=== PATIENT | female | born 1950 | race Caucasian/White ===

== ENCOUNTER → 2020-06-25 10:07 | Outpatient (CLI) | payer MEDICARE, SELFPAY ==
[2020-06-25 11:09] LABS: COVID19 -Nasal RAPID Negative (Negative)
== END ==
PROVIDERS: Visit Provider Physician Assistant
DX: Z01.812 Encounter for preprocedural laboratory examination (principal); Z20.822 Contact with and (suspected) exposure to COVID-19
CPT/HCPCS: 87635; C9803

== ENCOUNTER 2020-06-26 08:38 | Day surgery (SDC) | payer MEDICARE, SELFPAY ==
[2020-06-26] VITALS (17 sets, daily range): BP systolic 103–137; BP diastolic 50–81; PULSE 51–76; RESP 9–19; TEMP 35.8–36.6; O2SAT 96–100; BMI 21.1
--- NOTE | 2020-06-26 | DI.RAD.S_ITS ---
PROCEDURE: XR PELVIS 1-2V INDICATIONS: TOTAL LEFT HIP, SCREW REMOVAL TECHNIQUE: Intra-operative view of the pelvis and hip acquired. COMPARISON: [facility], , XR HIP 2 VIEWS LEFT, 04/12/2020, 11:43. FINDINGS: Bones: Intraoperative devices prior to placement of arthroplasty prostheses are in expected positions. No fractures or suspicious bony lesions. Soft tissues: Overlying surgical retractors are present, along with other intraoperative changes. IMPRESSION: Intraoperative study of pelvis shows left hip arthroplasty in progress. Dictated by: Dax Chase M.D. on 06/26/2020 at 13:21 Approved by: Dax Chase M.D. on 06/26/2020 at 13:21
--- NOTE | 2020-06-26 07:43 | DI.RAD.S_ITS ---
PROCEDURE: XR HIP W PEL IF DONE LT 2V INDICATIONS: total left hip TECHNIQUE: AP pelvis and lateral view of the left hip acquired. COMPARISON: None. FINDINGS: Bones: Patient is status post left hip arthroplasty, with hardware components in expected positions. The hip joint appears congruent. The visualized bony structures appear intact. Moderate right hip joint degeneration and lower lumbar spondylosis and facet arthropathy. Soft tissues: Overlying postoperative changes are noted. No suspicious soft tissue densities. IMPRESSION: Expected postoperative appearance. Dictated by: Sarthak Murphy M.D. on 06/26/2020 at 15:51 Approved by: Sarthak Murphy M.D. on 06/26/2020 at 15:52
[2020-06-26] MEDS: ACETAMINOPHEN 325 MG TABLET 975 MG PO (09:59)
[2020-06-26] MEDS: PREGABALIN 75 MG CAPSULE PO (09:59)
[2020-06-26] MEDS: CELECOXIB 200 MG CAPSULE PO (10:00)
[2020-06-26] MEDS: LACTATED RINGERS 1,000 ML 42 ML IV ×2 (10:11→13:18)
[2020-06-26] MEDS: VANCOMYCIN 1,000 MG/200 ML PIGGYBACK 200 MG IV (11:20)
--- NOTE | 2020-06-26 11:31 | P.OP_ITS ---
Operative Date/Time/Diagnoses Date of procedure: 06/26/20 Time of procedure: 11:57 Pre-op diagnosis: History of left hip open reduction internal fixation for femoral neck fracture with posttraumatic left hip arthritis Post-op diagnosis: same Procedure & Clinicians Procedure: conversion of previous hip surgery to left total hip arthroplasty Same procedure as scheduled: Yes Indications: The patient has had progressively worsening left hip pain with radiographic changes consistent with arthritis. Non-operative management has failed and the patient has requested total hip replacement. She has retained internal fixation with previous left hip open reduction internal fixation. The risks, benefits and alternatives to surgery were discussed with the patient prior to proceeding. Risks discussed included, but were not limited to, failure to relieve pain, leg length discrepancy, dislocation, stiffness, infection, nerve damage, deep venous thrombosis, pulmonary embolism, stroke, coma, heart attack, permanent paralysis and , as well as the potential need for eventual revision of the prosthetic. Surgeon: Dayna Melchor [employer] Farmworker: Bj Greenberg Anesthesia Type: General and Spinal Operative Notes Findings: severe left hip arthritis, good stability Closure Type: primary Specimen(s): none sent Prosthetic devices, grafts, tissues, transplants, or devices: Melchor and Nephew 56 R3 cup, size 13 synergy standard offset, +0 femoral head Applied: drain(s) Estimated Blood Loss (mL): 250 Blood products transfused: none Procedure in detail: The patient was seen in the pre-operative area, where the patient identified the left hip as the operative site and this was marked with my initials. The patient received pre-operative antibiotics and was taken to the operating room and placed on the operative table in the right lateral decubitus position after satisfactory anesthesia. A client server developer out was performed. The left leg was prepared from the ankle to the iliac crest with ChloroPrep in the usual fashion and draped through sterile drapes. The hip was approached through an approximately 24 cm incision centered over the greater trochanter and curving gently posteriorly as it went proximally. This was carried sharply to the fascia román, which was divided and retracted with a self retaining retractor. The trochanteric bursa was excised with care being taken to avoid the sciatic nerve, which was identified and protected throughout the case. The short external rotators were incised and the capsulomuscular flap was raised and tagged for later repair. The hip was dislocated. It was then re-reduced and the 3 previously placed screws were removed. there was some bony over to grow for with that had to be removed over the screw heads. It was then redislocated and a femoral neck osteotomy performed approximately 15 mm above the lesser trochanter. Retractors were placed around the femur. The canal was opened with a box cutting osteotome, followed by a T handled reamer and a lateralizing reamer. The chili pepper broach was then used, followed by sequential broaching until there was good stability of the broach in the femur. Retractors were placed to expose the acetabulum. The labrum and central soft tissues were removed. Reaming was performed initially going up in 2 mm increments, then 1 mm increments until good bite was obtained with an odd sized reamer. The cup 1 mm larger than the last reamer was then inserted using the appropriate anteversion guides. A trial neutral liner was placed. The broach was placed in the canal. A trial head and neck were then placed and the hip relocated and checked for leg length and stability. An intraoperative film confirmed the component position and no evidence of fracture. The patient was stable in the position of sleep, of squatting, and could be put through a range of motion with 45 degrees internal rotation without dislocation. At 90 degrees flexion, internal rotation to 80 Degrees was possible before dislocation. This was felt to be satisfactory and the appropriate components were opened, and the trials were removed. The acetabular liner was impacted into position. The final stem was then impacted into the prepared femoral canal. A brief Betadine soak was performed while trialing with head options. The hip was meticulously irrigated with normal saline. Finally the femoral head was impacted onto the stem. The acetabulum was cleared of all material and the hip relocated one final time. The capsulomuscular flap was then repaired to the greater trochanter though an awl hole using the tag sutures. The short external rotators were repaired with a nonabsorbable suture. A deep drain was placed and brought out anteriorly. The fascia román was closed with Vicryl. The subcutaneous layer was closed with barbed sutures and SteriStrips. An Aquacel Ag dressing was applied and the patient was taken to recovery having tolerated the procedure well. Complications: none Post-operative Condition: stable Disposition: Acute Care Plan for aftercare: The patient will be maintained on a standard total hip replacement protocol with weight bearing as tolerated and posterior hip precautions. The patient will receive Aspirin and sequential compression devices for DVT prophylaxis. The patient will be discharged home when safe for the home environment.
--- NOTE | 2020-06-26 11:31 | PM.PREOP ---
Pre-operative Note COVID-19 COVID-19 status: Negative Interval Note History & Physical reviewed/Exam performed by Physician: Yes Changes to H&P: No
[2020-06-26] MEDS: CEFAZOLIN 2 GM/100 ML FROZ.PIGGY IV ×2 (12:15→20:37)
[2020-06-26] MEDS: TRANEXAMIC ACID 1,000 MG VIAL 1000 MG INJ ×2 (12:28→14:11)
--- NOTE | 2020-06-26 12:41 | SUR.OPER ---
Right Lateral on padded OR bed. Gel axillary roll. Arms secured on padded armboard with pillow supporting top arm. Padded hip positioner braces x4 - anterior and posterior chest and pelvis. Additional gel pad used anterior pelvis. Gel pad under bottom leg from knee to foot and secured with tape over sheet.
[2020-06-26] MEDS: BUPIVACAINE 0.25% W/ EPI 30 ML VIAL 60 ML INJ (12:46)
[2020-06-26] MEDS: SODIUM CHLORIDE IRRIG SOLUTION 250 ML, POVIDONE-IODINE SPONGE STICKS 1 APPLIC IRR (12:55)
[2020-06-26] MEDS: BUPIVACAINE LIPOSOME 266 MG/20 ML VIAL INJ (14:13)
[2020-06-26] MEDS: fentaNYL 100 MCG/2 ML INJ IV ×2 (14:57→15:03)
[2020-06-26] MEDS: IBUPROFEN 400 MG TABLET PO ×2 (16:27→20:38)
[2020-06-26] MEDS: ACETAMINOPHEN 325 MG TABLET 650 MG PO ×2 (16:27→20:38)
[2020-06-26] MEDS: OXYCODONE IR 5 MG TABLET PO ×2 (16:28→20:58)
[2020-06-26] MEDS: LACTATED RINGERS 1,000 ML 125 ML IV (16:30)
[2020-06-26] MEDS: DOCUSATE 100 MG CAPSULE PO (20:38)
[2020-06-26] MEDS: ASPIRIN EC 81 MG TABLET PO (20:38)
[2020-06-27] MEDS: IBUPROFEN 400 MG TABLET PO ×4 (00:26→13:04)
[2020-06-27] MEDS: LACTATED RINGERS 1,000 ML 125 ML IV (01:00)
[2020-06-27] MEDS: OXYCODONE IR 5 MG TABLET PO ×2 (02:33→09:02)
[2020-06-27] MEDS: CEFAZOLIN 2 GM/100 ML FROZ.PIGGY IV (04:15)
[2020-06-27 04:31] VITALS: BP 109/56; PULSE 60; RESP 14; TEMP 37.1; O2SAT 98
--- NOTE | 2020-06-27 07:04 | P.PN_ITS ---
Subjective Subjective Date Patient Seen: 06/27/20 Time Patient Seen: 07:04 Interval history: Patient's pain is mild. Denies fever chills. No nausea/ vomiting. Patient's daughters are home to assist her. Otherwise without complaints this morning. Exam Vital Signs (past 8 hours): - 06/26/20 23:50 06/27/20 04:31 Temperature 97.9 F 98.7 F Pulse Rate 62 60 Respiratory Rate 18 14 Blood Pressure 116/63 109/56 L Pulse Oximetry 97 98 Oxygen Delivery Method Room Air Oxygen Flow Rate 0 Narrative Exam Narrative: Pleasant female in NAD, resting comfortably in bed. Dressing is CDI. Motor function is intact distal bilat. LE. Sensation is grossly intact to light touch bilat. LE. Drain intact. 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 Hip fracture requiring operative repair Osteoarthritis of both hips Osteoporosis Otalgia Poor historian Primary localized osteoarthrosis of pelvic region Reactive depression RLS (restless legs syndrome) Surgical History History of bilateral mastectomy History of hysterectomy Hx of breast implants, bilateral Social History household members: none Smoking Status: Former smoker alcohol intake: current Assessment & Plan Post-op Postoperative Procedures: Procedures Operation Date: 06/26/20 11:45 Actual Procedures Side Surgeon p Total Hip Arthroplasty w/removal of retained screws Left Dayna Melchor MD Progressing as expected post op day 1. Mobilize with PT. Posterior hip precautions. Likely discharge home today.
[2020-06-27 07:35] VITALS: BP 122/50; PULSE 63; RESP 16; TEMP 36.6; O2SAT 99
[2020-06-27 07:36] LABS: Hematocrit 32.8 % (36-46); Hemoglobin 11.7 g/dL (12.0-16.0)
[2020-06-27] MEDS: SODIUM CHLORIDE 0.9% FLUSH 10 ML IV (09:02)
[2020-06-27] MEDS: ASPIRIN EC 81 MG TABLET PO (09:02)
[2020-06-27] MEDS: DOCUSATE 100 MG CAPSULE PO (09:02)
[2020-06-27] MEDS: ACETAMINOPHEN 325 MG TABLET 650 MG PO (09:02)
--- NOTE | 2020-06-27 09:09 | CM.DANOTE ---
DCP: Case received, EMR reviewed and met with patient. Introduced self and role. Was able to obtain information from patient regarding her baseline mobility status, as well as her current living situation. DCP assessment completed with information currently available. Patient is a 69 year old female who admitted yesterday morning to the care of the orthopedic team. PCP: Dr. Thomason. Payer: confirmed: Medicare. Patient came to the hospital for a surgical procedure. She had left hip arthroplasty. Patient has had history of surgery, indicated, the hardware had gone bad. She has history of osteoarthritis. According to notes, mobility has been a challenge. Met with patient in her room. She is alert and oriented. She resides in [place] alone, but stated that her daughter will be assisting her at home. She indicated that she has a cane/walking stick that she has been jsing at home. She also mentioned that she does drive short distances. She is concerned about pain while working with physical therapy, but also, doesn't want to get groggy from pain medications. P: DCP to continue to follow. Patient's goal is home, but will see how she does with physical therapy. Neena Shah RN/Clerical Proofreader
--- NOTE | 2020-06-27 09:44 | PT.IIE ---
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 Hip fracture requiring operative repair Osteoarthritis of both hips Osteoporosis Otalgia Poor historian Primary localized osteoarthrosis of pelvic region Reactive depression RLS (restless legs syndrome) Physical Therapy Inpatient Evaluation/Re-Eval M1 PT/OT-IP Prior Functional Status Start: 06/27/20 11:46 Freq: NEEDED Status: Active Protocol: Document 06/27/20 09:44 AB (Rec: 06/27/20 12:00 AB [id number]) Medical Review Prior Functional Status Medical History Reviewed Yes Communication able to make needs known but has memory issues and requires cues with all tasks Mobility and Gait pt stated that she is independent with all mobilities and ambulation without AD Social History Household Members none Living Arrangements House Number of Floors (Floors) Two Floors Number of Stairs To Enter/Railing? pt stays on main level of the house has 2 steps without rails to enter the house Home Environment Standard Height Toilet,Walk in Shower Home Equipment Front Wheel Walker,Quad Cane, Shower Seat with Backrest,Grab Bars Near Toilet Additional Social History Comment pt's 2 daughters will stay with pt to assist her M2 PT-IP Current Condition Start: 06/27/20 11:46 Freq: NEEDED Status: Active Protocol: Document 06/27/20 09:44 AB (Rec: 06/27/20 12:00 AB [id number]) Physical Therapy Current Condition Current Condition Evaluation Date 06/27/20 Treatment Diagnosis s/p L LYNDA posterior approach; difficulty in walking Onset Date 06/26/20 Precautions Posterior Hip Precautions No Hip Flexion > 90 degrees,No Hip Internal Rotation,No Hip Adduction Weight Bearing Status Weight Bearing Status Weight Bear as Tolerated Allowed Weight Bearing Amount (enter % LLE WBAT or #) (%) M3 PT-IP Subjective Start: 06/27/20 11:46 Freq: NEEDED Status: Active Protocol: Document 06/27/20 09:44 AB (Rec: 06/27/20 12:00 AB [email or web address]) Subjective Physical Therapy Visit Type Type Initial Evaluation Visit Start Time 09:44 Visit Stop Time 11:10 Total Visit Minutes 86 Number of INFECTION PREVENTION SPECIALIST Visits 0 Physical Therapy Visit Comments Patient Comments agreeable to do PT Therapy Pain Assessment Pain When Pain Assessed At Rest Pain Present Pain Present Pain Reported Location L Hip Intensity 5 Scale Used Numeric (0 - 10) Pain Management Techniques Apply Cold,Distraction, Modification of Treatment,Re- positioning,Timing of Activity with Medications M4 PT-IP Mobility and Gait Start: 06/27/20 11:46 Freq: NEEDED Status: Active Protocol: Document 06/27/20 09:44 AB (Rec: 06/27/20 12:00 [email or web address]) PT-Bed Mobility Assessment Supine to Sit Supine to Sit Standby Assistance Sit to Supine Sit to Supine Minimal Assistance,1 Person Assistance PT-Transfer Assessment Sit to and From Stand Sit to and from Stand Contact Guard Assistance,1 Person Assistance Equipment Transfer Assistive Device Gait Belt,Front Wheeled Walker Orthotic/Prosthetic Devices or Brace: No Transfers Transfer Destination Chair Transfer Technique ambulated using FWW Transfer Ability Level of Assist Contact Guard Assistance,1 Person Assistance,Use of Upper Extremities Comments Mobility Comments pt educated on posterior hip precautions but has decrease memory and unable to recall precautions. requires one on one cues with all tasks. completed supine to sit SBA with cues, sit to stand CGA with cues for hip precautions and ambulated in room using FWW CGA. pt's daughter arrived during PT session. conducted caregiver training. educated pt's daughter on pt' s hip precuations, use of gait belt, how to assist and cue pt. pt demonstrated bed mobility, transfers and ambulation using fWW with daughter assisting and was able to complete safely requiring initial cues from PT but able to complete without PT instructions afterwards. PT educated and demonstrate stair climbing. daughter assisted pt with stairs using quad cane and was able to complete safely. assisted pt back to her room. pt ambulated using fWW to the chair. positioned on the chair. call light and table placed within reach. reviewed precautions, mobility and car transfers with pt and daughter. daughter stated that she feels confident on assisting pt and without further concerns. Gait Assessment Gait Gait Assistance Required: Contact Guard Assist Distance (Feet) 125 Able to Maintain Weight Bearing Status Yes During Gait Assistive Devices Assistive Device Gait Belt,Front Wheeled Walker Orthotic/Prosthetic Devices or Brace: No Gait Deviations General Gait Pattern Antalgic,Decreased Stride Length,Decreased Feet Clearance,Step-to Gait Factors Limiting Gait Function Factors Limiting Gait Function Decreased Activity Tolerance, Decreased Strength,Difficulty Following Directions,Limited Range of Motion,Pain,Poor Balance,Poor Safety Awareness Stair Climbing Assessment Evaluation Level of Assist On Stairs Minimal Assistance Devices Stair Climbing Assistive Devices Small Base Quad Cane Technique/Endurance Stair Climbing Direction Ascend and Descend Stair Climbing Technique Step to Step Number of Steps Climbed 3 Query Text: Stair Climbing Set # Repetitions (reps) 1 PT-Balance Assessment Sitting Balance and Reactions Static Sitting Balance Ability Good Dynamic Sitting Balance Ability Good Standing Balance and Reactions Static Standing Balance Ability Fair Dynamic Standing Balance Ability Fair Device Used FWW M5 PT-IP Objective Assessments Start: 06/27/20 11:46 Freq: NEEDED Status: Active Protocol: Document 06/27/20 09:44 AB (Rec: 06/27/20 12:00 AB [email or web address]) Orientation Orientation/Cognition Level of Alertness Alert Orientation Name,Place,Situation Safety Awareness Decreased Safety Awareness Memory Description Short Term Impaired,Group Home Impaired Gross Range of Motion Lower Extremity ROM Assessment Within Functional Limits Strength Lower Extremity Strength Assessment Left Impaired Hip 3+/5 Knee 4-/5 Coordination Assessment Gross Coordination Gross Coordination WNL Sensation Assessment Sensation Gross Sensation WNL Muscle Tone Muscle Tone WNL Yes M6 PT-IP Treatment Start: 06/27/20 11:46 Freq: NEEDED Status: Active Protocol: Document 06/27/20 09:44 AB (Rec: 06/27/20 12:00 AB [email or web address]) Physical Therapy Treatment Education Education Provided Precautions,Weight Bearing Status,Post-Op Packet,Safety M7 PT-IP Assessment and Plan Start: 06/27/20 11:46 Freq: NEEDED Status: Active Protocol: Document 06/27/20 09:44 AB (Rec: 06/27/20 12:00 AB [email or web address]) PT Summary Assessment and Plan Potential Rehabilitation Potential Good Status of Condition at Evaluation Stable Summary Impairments Pain,ROM,Strength,Balance, Coordination,Sensation,Tone, Cognition,Bed Mobility, Transfers,Gait,Activity Tolerance Assessment Summary caregiver training conducted and daughter is able to assist pt safely. pt may go home when medically stable. pt stated that she is set up with outpt PT. Goals Bed Mobility Goal Independent Transfer Goal Independent,Front Wheeled Walker Gait Goal Independent,Front Wheel Walker Gait Distance 200 Other Goals up/down 2 steps using quad cane SBA Days to Meet Goals 5 Frequency of Treatment Frequency Of Treatment Twice a Day Treatment Plan Physical Therapy Treatment Plan Bed Mobility Training,Transfer Training,Gait Training, Therapeutic Exercise,Balance Retraining,Post Op Education, Discharge Planning,Hot or Cold Pack,Neuromuscular Re-ed, Coordination Retraining,Manual Therapy Recommendations To Nursing Amount of Assist Needed 1 Person Assist Discharge Recommendations PT Discharge Recommendations Home with 15/12 Assist, Outpatient PT Transportation Needs at Discharge Private Vehicle
[2020-06-27 11:18] VITALS: BP 104/62; PULSE 68; RESP 15; TEMP 36.6; O2SAT 99
[2020-06-27 12:21] VITALS: PULSE 66; RESP 16; O2SAT 99
--- NOTE | 2020-06-27 14:13 | P.DS_ITS ---
History of Present Illness History of Present Illness Date Patient Seen: 06/27/20 Time Patient Seen: 14:14 Chief complaint: OPB Narrative: Patient did well with physical therapy. She denies any nausea or vomiting. She will be discharged home today in stable condition. Discharge Providers Provider Discharge Date: 06/27/20 Primary care physician: Marvin Thomason MD Consults: 06/26/20 07:43 Consult to Anesthesiology Routine Comment: Consulting Provider: Anesthesiologist Reason for consultation: Regional block for post operative pain control 06/26/20 15:56 Consult to Discharge Planning Routine Comment: Consult to Physical Therapy Evaluate & Treat Comment: Physician Instructions: post op LYNDA protocol Consult to Respiratory Therapy Evaluate & Treat Comment: Physician Instructions: Evaluate and treat Discharge provider: Bj Greenberg PA-C Summary Hospital Course Discharge Diagnosis: History of left hip open reduction internal fixation for femoral neck fracture with posttraumatic left hip arthritis Hospital Course: Procedure: conversion of previous hip surgery to left total hip arthroplasty Same procedure as scheduled: Yes Indications: The patient has had progressively worsening left hip pain with radiographic changes consistent with arthritis. Non-operative management has failed and the patient has requested total hip replacement. She has retained internal fixation with previous left hip open reduction internal fixation. The risks, benefits and alternatives to surgery were discussed with the patient prior to proceeding. Risks discussed included, but were not limited to, failure to relieve pain, leg length discrepancy, dislocation, stiffness, infection, nerve damage, deep venous thrombosis, pulmonary embolism, stroke, coma, heart attack, permanent paralysis and , as well as the potential need for eventual revision of the prosthetic. Surgeon: Dayna Melchor Concreting Supervisor: Bj Greenberg Anesthesia Type: General and Spinal Operative Notes Findings: severe left hip arthritis, good stability Closure Type: primary Specimen(s): none sent Prosthetic devices, grafts, tissues, transplants, or devices: Melchor and Nephew 56 R3 cup, size 13 synergy standard offset, +0 femoral head Applied: drain(s) Estimated Blood Loss (mL): 250 Blood products transfused: none Patient admitted for the above-mentioned procedure. Patient consented for the same. Patient underwent conversion of previous hip ORIF to left total hip arthroplasty. Patient back in her room recovering well as in stable condition. Status at Discharge Cognitive/behavioral status at discharge: at baseline, oriented Functional status at discharge: uses cane/walker Overall status at discharge: patient is progressing back to baseline Time Spent with Patient Time spent: Less than 30 minutes Exam Vital Signs (past 8 hours): - 06/27/20 07:35 06/27/20 11:18 06/27/20 12:21 Temperature 97.8 F 97.9 F Pulse Rate 63 68 66 Respiratory Rate 16 15 16 Blood Pressure 122/50 L 104/62 Pulse Oximetry 99 99 99 Oxygen Delivery Method Room Air Oxygen Flow Rate 0 Narrative Exam Narrative: See progress note Objective Labs Result Diagrams: 06/27/20 07:19 Labs: Laboratory Results - last 24 hr 06/27/20 07:19 Hgb 11.7 L Hct 32.8 L PFS Medical History Anxiety state Breast cancer, left Cervical sprain Concussion without loss of consciousness 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 Discharge Plan Discharge Plan Patient Disposition: Home Discharge orders & Medications Discharge Orders: Discharge (Order); Ordered 06/27/20 Ordered By: Bj Greenberg Prescriptions: New acetaminophen 325 mg Tablet 650 mg PO TID Qty: 60 RF: 0 polyethylene glycol 3350 17 gram Powder In Packet 17 gm PO DAILY PRN (Reason: Constipation) Qty: 10 RF: 0 aspirin 81 mg Tablet,Delayed Release (Dr/Ec) 81 mg PO BID Qty: 60 RF: 0 ibuprofen 400 mg Tablet 400 mg PO Q4HR Qty: 60 RF: 0 oxycodone 5 mg Tablet 5 mg PO Q3HR PRN (Reason: Pain, Moderate (4-6)) Qty: 40 RF: 0 Follow up/Referrals: Marvin Thomason MD [Primary Care Provider] - Dayna Melchor MD [Physician] - (2 weeks) Diet/Activity/Treatments Diet: Diet as Tolerated Activity: walk multiple times a day. Follow posterior hip precautions. Cold/Heat Therapy: Use ice on hip multiple times a day. Skin/Wound/Dressing Care Report to your healthcare provider any signs of infection, such as:: chills, fever, night sweats, increased pain, unusual drainage and unusual redness Dressing: Leave dressing on. Okay to shower. Visit Report/Discharge Packet Instructions: DI for Hip Replacement Stand Alone Forms: Surgery Discharge Discharge Data Primary Care Provider: Marvin Thomason Attending Provider: Dayna Melchor
--- NOTE | 2020-06-27 14:38 | PT.IPTN ---
Current Diagnoses Pain in left hip (06/26/20) Surgery Performed Operation Date: 06/26/20 11:45 Actual Procedures p Total Hip Arthroplasty w/removal of retained screws(Left) - Dayna Melchor MD Physical Therapy Treatment Note M2 PT-IP Current Condition Start: 06/27/20 11:46 Freq: NEEDED Status: Discharge Protocol: Document 06/27/20 09:44 AB (Rec: 06/27/20 12:00 AB [id number]) Physical Therapy Current Condition Current Condition Evaluation Date 06/27/20 Treatment Diagnosis s/p L LYNDA posterior approach; difficulty in walking Onset Date 06/26/20 Precautions Posterior Hip Precautions No Hip Flexion > 90 degrees,No Hip Internal Rotation,No Hip Adduction Weight Bearing Status Weight Bearing Status Weight Bear as Tolerated Allowed Weight Bearing Amount (enter % LLE WBAT or #) (%) M3 PT-IP Subjective Start: 06/27/20 11:46 Freq: NEEDED Status: Discharge Protocol: Document 06/27/20 14:24 LD (Rec: 06/27/20 15:18 LD [id number]) Subjective Physical Therapy Visit Type Type Treatment Note Visit Start Time 14:24 Visit Stop Time 14:38 Total Visit Minutes 14 Notes SPTA co-led tx with BUILDING SERVICES ENGINEER Miguelina . Daughter present and assisted pt w/ dressing present upon arrival for discharge. Number of BUILDING SERVICES ENGINEER Visits 1 Physical Therapy Visit Comments Patient Comments Agreed to review post op ex and precautions. Pt is ready to go home. Patient Goals To return home with daughters to assist. M4 PT-IP Mobility and Gait Start: 06/27/20 11:46 Freq: NEEDED Status: Discharge Protocol: Document 06/27/20 14:24 LD (Rec: 06/27/20 15:18 LD [id number]) PT-Bed Mobility Assessment Supine to Sit Supine to Sit Standby Assistance Sit to Supine Sit to Supine Standby Assistance,1 Person Assistance PT-Transfer Assessment Sit to and From Stand Sit to and from Stand Contact Guard Assistance,1 Person Assistance Equipment Transfer Assistive Device Gait Belt,Front Wheeled Walker Orthotic/Prosthetic Devices or Brace: No Transfers Transfer Destination Bed Transfer Technique ambulated using FWW Transfer Ability Level of Assist Contact Guard Assistance,1 Person Assistance,Use of Upper Extremities Comments Mobility Comments Patient was standing in room w / FWW, daughter providing SBA. Reviewed pt education on posterior hip precautions, unable to recall, showed her yellow folder to go over the precautions. Completed stand> sit SBA w/ cues, sit>supine SBA w/cues, hooking the L LE w / R LE. Then proceeded to go over and perfrom post op ex w/ cues and assisted GB w/ heel slides. After cued the use of GB for transferring the L LE to the EOB. Pt was able complete exercises w/ cues initally given, Mod A for heel slides. All needs placed within reach. Daughter present when leaving. 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 Gross Range of Motion Lower Extremity ROM Assessment Within Functional Limits Strength Lower Extremity Strength Assessment Left Impaired Hip 3+/5 Knee 4-/5 Coordination Assessment Gross Coordination Gross Coordination WNL Sensation Assessment Sensation Gross Sensation WNL Muscle Tone Muscle Tone WNL Yes M6 PT-IP Treatment Start: 06/27/20 11:46 Freq: NEEDED Status: Discharge Protocol: Document 06/27/20 14:24 LD (Rec: 06/27/20 15:18 LD [id number]) Physical Therapy Treatment Exercises Exercises Ankle Pumps,Gluteal Sets,Quad Sets,Heel Slides,Supine Hip Abduction Education Education Provided Precautions,Weight Bearing Status,Post-Op Packet,Safety Other Treatments Other Treatment Performed Required Mod A for heel slide but was able to use GB for L LE mobility. M7 PT-IP Assessment and Plan Start: 06/27/20 11:46 Freq: NEEDED Status: Discharge Protocol: Document 06/27/20 14:24 LD (Rec: 06/27/20 15:18 LD [id number]) PT Summary Assessment and Plan Potential Rehabilitation Potential Good Status of Condition at Evaluation Stable Summary Impairments Pain,ROM,Strength,Balance, Coordination,Sensation,Tone, Cognition,Bed Mobility, Transfers,Gait,Activity Tolerance Progress Towards Goals Progressing Toward Goals Assessment Summary Reviewed patient education on posterior hip precautions and post op ex. Pt demonstrated bed mobility and exercises safely w/ cues and assistance from daughter when needed. Pt is ok to return home with family to assist her when medically cleared. Goals Bed Mobility Goal Independent Transfer Goal Independent,Front Wheeled Walker Gait Goal Independent,Front Wheel Walker Gait Distance 200 Other Goals up/down 2 steps using quad cane SBA Days to Meet Goals 5 Frequency of Treatment Frequency Of Treatment Twice a Day Treatment Plan Physical Therapy Treatment Plan Bed Mobility Training,Transfer Training,Gait Training, Therapeutic Exercise,Balance Retraining,Post Op Education, Discharge Planning,Hot or Cold Pack,Neuromuscular Re-ed, Coordination Retraining,Manual Therapy Other Recommendations and Next Treatment Review posterior hip Focus precautions and ther ex, gait activity and bed mobility. Recommendations To Nursing Amount of Assist Needed 1 Person Assist Discharge Recommendations PT Discharge Recommendations Home with 15/12 Assist, Outpatient PT Transportation Needs at Discharge Private Vehicle
== END 2020-06-27 14:47 | disposition home or self-care (01) ==
LOC: OR 08:43 → AC 12:32
PROVIDERS: PCP Family Medicine; Referring Provider Family Medicine; Visit Provider Orthopaedic Surgery
PROC: 0SRB0JZ Replacement of Left Hip Joint with Synthetic Substitute, Open Approach (ICD-10-PCS; CPT 27130; principal; 2020-06-26 11:45)
DX: M16.52 Unilateral post-traumatic osteoarthritis, left hip (principal)
CPT/HCPCS: 27132; 36415; 72170; 73502; 85014; 85018; 94760; 97110; 97116; 97161; 97530; C1776; C9290; J0690; J1100; J2250; J2405; J2704; J3010